=== PATIENT | male | born 1955 | race Caucasian/White ===

== ENCOUNTER 2017-06-16 11:40 | Emergency (ER) | payer BC ==
[2017-06-16] MEDS ORDERED: Nitroglycerin 0.4 MG Tab.SL SL PRN (11:55)
[2017-06-16] MEDS ORDERED: Aspirin 81 MG Tab.Chew PO ONE (11:55)
[2017-06-16] MEDS ORDERED: Ketorolac 30 MG/ML SDV IVPUSH ONE (11:57)
[2017-06-16 12:21] LABS: CHLORIDE,CL 102 mmol/L (98-107); SODIUM,NA 137 mmol/L (136-148)
--- NOTE | 2017-06-16 12:58 | EDM.PDOC ---
ED HPI GENERAL MEDICAL PROBLEM - General Chief Complaint: Chest Pain Stated Complaint: CHEST PAIN AND SOB Time Seen by Provider: 06/16/17 11:52 Source of Information: Reports: Patient History Limitations: Reports: No Limitations - History of Present Illness INITIAL COMMENTS - FREE TEXT/NARRATIVE: History of present illness: []Patient was treated for cough with Zithromax and is on his last day having right-sided rib pain with breathing. He is not complaining of more shortness of breath and denies any fevers chills any longer. Review of systems: As per history of present illness and below otherwise all systems reviewed and negative. Past medical history: As per history of present illness and as reviewed below otherwise noncontributory. Surgical history: As per history of present illness and as reviewed below otherwise noncontributory. Social history: No reported history of drug or alcohol abuse. Family history: As per history of present illness and as reviewed below otherwise noncontributory. Physical exam: General: Well developed, well nourished in NAD HEENT: Atraumatic, normocephalic, pupils reactive, negative for conjunctival pallor or scleral icterus, mucous membranes moist, throat clear, neck supple, nontender, trachea midline. Lungs: Clear to auscultation, breath sounds equal bilaterally, chest tender to palpation over the right ribs. No subcutaneous crepitance tender Heart: S1S2, regular, negative for clicks, rubs, or JVD. Abdomen: Soft, nondistended, nontender. Negative for masses or hepatosplenomegaly. Negative for costovertebral tenderness. Pelvis: Stable nontender. Genitourinary: Deferred. Rectal: Deferred. Extremities: Atraumatic, negative for cords or calf pain. Neurovascular unremarkable. Neuro: Awake, alert, oriented. Cranial nerves II through XII unremarkable. Cerebellum unremarkable. Motor and sensory unremarkable throughout. Exam nonfocal. Diagnostics: []Chest x-ray negative for trach, pneumothorax or rib fracture. CBC negative, chemistries mildly elevated LFTs which patient states is normal for him Therapeutics: []Aspirin and nitroglycerin nitroglycerin given initially Toradol with improvement of pain Impression: []Chest Wall pain Plan: []Tramadol continue meds at home return if symptoms worsen or change follow-up with primary care Definitive disposition and diagnosis as appropriate pending reevaluation and review of above. Right Chest Pain Score (Numeric/FACES): 9 - Related Data Allergies Allergy/AdvReac Type Severity Reaction Status Date / Time No Known Allergies Allergy Verified 06/16/17 11:50 Home Meds: Home Meds Levothyroxine 0.15 mg PO DAILY 09/08/14 [History] atorvaSTATin [Lipitor] 40 mg PO DAILY 09/09/14 [History] Allopurinol [Zyloprim] 0 mg PO DAILY 06/16/17 [History] Losartan [Cozaar] 0 mg PO DAILY 06/16/17 [History] Past Medical History HEENT History: Reports: None Cardiovascular History: Reports: High Cholesterol, Hypertension Respiratory History: Reports: None Other Respiratory History: does no use CPAP Gastrointestinal History: Reports: None Genitourinary History: Reports: None Musculoskeletal History: Reports: Gout Psychiatric History: Reports: None Endocrine/Metabolic History: Reports: Hypothyroidism Other Hematologic History: had blood transfusion as an - Infectious Disease History Infectious Disease History: Reports: None Other Infectious Disease History: Pt does not know - Past Surgical History HEENT Surgical History: Reports: None GI Surgical History: Reports: None Social & Family History - Family History Family Medical History: Noncontributory - Tobacco Use Smoking Status *Q: Never Smoker - Caffeine Use Caffeine Use: Reports: None - Alcohol Use Days Per Week of Alcohol Use: 2 - Recreational Drug Use Recreational Drug Use: No Drug Use in Last 12 Months: No ED ROS GENERAL - Review of Systems Review Of Systems: See Below (See history of present illness) ED EXAM, GI/ABD - Physical Exam Exam: See Below (The history of present illness) Course - Vital Signs Last Recorded V/S: Last Vital Signs Temp 97.6 F 06/16/17 11:47 Pulse 94 06/16/17 11:47 Resp 18 06/16/17 11:47 BP 131/93 H 06/16/17 12:01 Pulse Ox 97 06/16/17 11:47 - Orders/Labs/Meds Orders: Active Orders 24 hr Category Date Time Status EKG 12 Lead [EKG Documentation Completion] [RC] STAT Care 06/16/17 12:16 Active Chest 2V [CR] Stat Exams 06/16/17 11:58 Taken Nitroglycerin [Nitrostat] Med 06/16/17 11:55 Active 0.4 mg SL Q5M PRN Medication Orders Nitroglycerin (Nitrostat) 0.4 mg SL Q5M PRN PRN Reason: Chest Pain Last Admin: 06/16/17 12:01 Dose: 0.4 mg Labs: Laboratory Tests 06/16/17 06/16/17 Range/Units 11:49 11:49 WBC 11.74 H (4.0-11.0) K/uL RBC 4.90 (4.50-5.90) M/uL Hgb 14.5 (13.0-17.0) g/dL Hct 42.5 (38.0-50.0) % MCV 86.7 (80.0-98.0) fL MCH 29.6 (27.0-32.0) pg MCHC 34.1 (31.0-37.0) g/dL RDW Std Deviation 42.8 (28.0-62.0) fl RDW Coeff of Cher 14 (11.0-15.0) % Plt Count 265 (150-400) K/uL MPV 9.90 (7.40-12.00) fL Neut % (Auto) 74.0 (48.0-80.0) % Lymph % (Auto) 14.7 L (16.0-40.0) % Bath % (Auto) 8.1 (0.0-15.0) % Eos % (Auto) 2.8 (0.0-7.0) % Baso % (Auto) 0.4 (0.0-1.5) % Neut # (Auto) 8.7 H (1.4-5.7) K/uL Lymph # (Auto) 1.7 (0.6-2.4) K/uL Bath # (Auto) 1.0 H (0.0-0.8) K/uL Eos # (Auto) 0.3 (0.0-0.7) K/uL Baso # (Auto) 0.1 (0.0-0.1) K/uL Nucleated RBC % 0.0 /100WBC Nucleated RBCs # 0 K/uL Sodium 137 (136-148) mmol/L Potassium 4.4 (3.5-5.1) mmol/L Chloride 102 (98-107) mmol/L Carbon Dioxide 23.1 (21.0-32.0) mmol/L BUN 26 H (7.0-18.0) mg/dL Creatinine 1.9 H (0.8-1.3) mg/dL Est Cr Clr Drug Dosing 42.69 mL/min Estimated GFR (MDRD) 36.3 ml/min Glucose 125 H (74-106) mg/dL Calcium 9.2 (8.5-10.1) mg/dL Total Bilirubin 1.0 (0.2-1.0) mg/dL AST 57 H (15-37) IU/L ALT 69 H (14-63) IU/L Alkaline Phosphatase 125 H (46-116) U/L Troponin I < 0.050 (0.000-0.056) ng/mL Total Protein 7.3 (6.4-8.2) g/dL Albumin 3.3 L (3.4-5.0) g/dL Globulin 4.0 H (2.0-3.5) g/dL Albumin/Globulin Ratio 0.8 L (1.3-2.8) Meds: Medications Generic Name Dose Route Start Last Admin Trade Name Freq PRN Reason Stop Dose Admin Nitroglycerin 0.4 mg 06/16/17 11:55 06/16/17 12:01 Nitrostat SL 0.4 mg Q5M PRN Administration Chest Pain Discontinued Medications Generic Name Dose Route Start Last Admin Trade Name Freq PRN Reason Stop Dose Admin Aspirin 324 mg 06/16/17 11:55 06/16/17 11:59 Aspirin PO 06/16/17 11:56 324 mg ONETIME ONE Administration Ketorolac Tromethamine 30 mg 06/16/17 11:57 06/16/17 12:03 Toradol IVPUSH 06/16/17 11:58 30 mg ONETIME ONE Administration Departure - Departure Time of Disposition: 12:57 Disposition: Home, Self-Care 01 Condition: Good Clinical Impression: Chest wall pain - Discharge Information Referrals: Grzegorz Espinosa MD [Primary Care Provider] - Additional Instructions: The following information is given to patients seen in the emergency department who are being discharged to home. This information is to outline your options for follow-up care. We provide all patients seen in our emergency department with a follow-up referral. The need for follow-up, as well as the timing and circumstances, are variable depending upon the specifics of your emergency department visit. If you don't have a primary care physician on staff, we will provide you with a referral. We always advise you to contact your personal physician following an emergency department visit to inform them of the circumstance of the visit and for follow-up with them and/or the need for any referrals to a consulting specialist. The emergency department will also refer you to a specialist when appropriate. This referral assures that you have the opportunity for follow-up care with a specialist. All of these measure are taken in an effort to provide you with optimal care, which includes your follow-up. Under all circumstances we always encourage you to contact your private physician who remains a resource for coordinating your care. When calling for follow-up care, please make the office aware that this follow-up is from your recent emergency room visit. If for any reason you are refused follow-up, please contact the [facility] Emergency Department at and asked to speak to the emergency department charge nurse. Tramadol for pain follow-up with primary care return if symptoms worsen or change [facility] [address] [place] [id number] - My Orders Last 24 Hours: My Active Orders 06/16/17 11:55 Nitroglycerin [Nitrostat] 0.4 mg SL Q5M PRN 06/16/17 11:58 Chest 2V [CR] Stat 06/16/17 12:16 EKG 12 Lead [EKG Documentation Completion] [RC] STAT - Assessment/Plan Last 24 Hours: My Active Orders 06/16/17 11:55 Nitroglycerin [Nitrostat] 0.4 mg SL Q5M PRN 06/16/17 11:58 Chest 2V [CR] Stat 06/16/17 12:16 EKG 12 Lead [EKG Documentation Completion] [RC] STAT
[2017-06-16 15:24] VITALS: BP 121/81
--- NOTE | 2017-06-17 13:26 | CR ---
EXAM DATE: 06/16/17 PATIENT'S AGE: 62 Patient: FREDERICK PAL Facility: [place], [place] Site . Site : 1955 Study: XRay Chest [id number]/1/2018 12:30:41 PM Ordering Physician: Max Devries Final Report: INDICATION: Pain; shortness of breath; cough. COMPARISON: None. TECHNIQUE: Two-view chest. FINDINGS: Normal size cardiac silhouette. Elevated right hemidiaphragm. No acute pneumonic infiltrates or CHF. No pneumothorax or pleural effusion. IMPRESSION: Negative chest. Dictated by Yara aVle MD @ Jun 16 2017 12:31PM (Electronic Signature) Report Signed by Proxy. QUINND
== END 2017-06-16 13:16 | disposition home or self-care (01) ==
LOC: MW.ED 11:40
DX: R07.89 Other chest pain (principal); E78.00 Pure hypercholesterolemia, unspecified; I10 Essential (primary) hypertension; Z79.899 Other long term (current) drug therapy; E03.9 Hypothyroidism, unspecified
CPT/HCPCS: 36415; 71046; 80053; 84484; 85025; 93005; 96374; 99285; A9270; J1885; 99283

== ENCOUNTER 2017-06-17 16:52 | Observation (INO) | payer BC ==
--- NOTE | 2017-06-17 17:03 | EDM.PDOC ---
ED HPI GENERAL MEDICAL PROBLEM - General Chief Complaint: General Stated Complaint: PT HAS BLOOD CLOT IN LT LEG Time Seen by Provider: 06/17/17 16:58 Source of Information: Reports: Patient History Limitations: Reports: No Limitations - History of Present Illness INITIAL COMMENTS - FREE TEXT/NARRATIVE: History of present illness: []Patient was sent in from Dr. Espinosa's office after discovering he has a DVT in his leg during a follow-up visit for gout. Patient was recently treated for bronchitis and was seen in the ER yesterday for rib pain and pain with breathing. Dr. Espinosa did repeat labs and a shows a BUN/creatinine of 35/2.3 today. He served in the ED for treatment of his DVT and rule out PE. Review of systems: As per history of present illness and below otherwise all systems reviewed and negative. Past medical history: As per history of present illness and as reviewed below otherwise noncontributory. Surgical history: As per history of present illness and as reviewed below otherwise noncontributory. Social history: No reported history of drug or alcohol abuse. Family history: As per history of present illness and as reviewed below otherwise noncontributory. Physical exam: General: Well developed, well nourished in NAD HEENT: Atraumatic, normocephalic, pupils reactive, negative for conjunctival pallor or scleral icterus, mucous membranes moist, throat clear, neck supple, nontender, trachea midline. Lungs: Clear to auscultation, breath sounds equal bilaterally, chest nontender. Heart: S1S2, regular, negative for clicks, rubs, or JVD. Abdomen: Soft, nondistended, nontender. Negative for masses or hepatosplenomegaly. Negative for costovertebral tenderness. Pelvis: Stable nontender. Genitourinary: Deferred. Rectal: Deferred. Extremities: Atraumatic, negative for cords or calf pain. Neurovascular unremarkable. Neuro: Awake, alert, oriented. Cranial nerves II through XII unremarkable. Cerebellum unremarkable. Motor and sensory unremarkable throughout. Exam nonfocal. Diagnostics: []VQ scan ordered while he was in the VQ scanner the machine is started cracking and started smelling of fire so the test was stopped at this point I consulted Dr. Lester to see what the best plan would be and he recommended admitting for observation and starting him on EliQuist tomorrow Therapeutics: []Lovenox Impression: []DVT, Plan: []Admit for observation telemetry Definitive disposition and diagnosis as appropriate pending reevaluation and review of above. Middle Chest Pain Score (Numeric/FACES): 1 - Related Data Allergies Allergy/AdvReac Type Severity Reaction Status Date / Time No Known Allergies Allergy Verified 06/16/17 11:50 Home Meds: Home Meds Levothyroxine 150 mcg PO DAILY 09/08/14 [History] atorvaSTATin [Lipitor] 40 mg PO DAILY 09/09/14 [History] Allopurinol [Zyloprim] 300 mg PO DAILY 06/16/17 [History] Losartan [Cozaar] 100 mg PO DAILY 06/16/17 [History] Albuterol [IMW: Albuterol HFA] 1 puff IH Q6H PRN 06/17/17 [History] Levothyroxine 225 mcg PO WEEKLY 06/18/17 [History] Past Medical History HEENT History: Reports: None Cardiovascular History: Reports: High Cholesterol, Hypertension Respiratory History: Reports: None Other Respiratory History: does no use CPAP Gastrointestinal History: Reports: None Genitourinary History: Reports: None Musculoskeletal History: Reports: Gout Psychiatric History: Reports: None Endocrine/Metabolic History: Reports: Hypothyroidism Other Hematologic History: had blood transfusion as an - Infectious Disease History Infectious Disease History: Reports: None Other Infectious Disease History: Pt does not know - Past Surgical History HEENT Surgical History: Reports: None GI Surgical History: Reports: None Social & Family History - Family History Family Medical History: Noncontributory - Tobacco Use Smoking Status *Q: Never Smoker - Caffeine Use Caffeine Use: Reports: None - Alcohol Use Days Per Week of Alcohol Use: 2 - Recreational Drug Use Recreational Drug Use: No Drug Use in Last 12 Months: No ED ROS GENERAL - Review of Systems Review Of Systems: See Below ED EXAM, GENERAL - Physical Exam Exam: See Below (The history of present illness) Course - Vital Signs Last Recorded V/S: Last Vital Signs Temp 98.0 F 06/18/17 07:52 Pulse 95 06/18/17 07:52 Resp 20 06/18/17 07:52 BP 129/83 06/18/17 09:50 Pulse Ox 94 L 06/18/17 07:52 - Orders/Labs/Meds Orders: Active Orders 24 hr Category Date Time Status EKG 12 Lead [EKG Documentation Completion] [RC] STAT Care 06/17/17 17:25 Active Sodium Chloride 0.9% [Saline Flush] Med 06/17/17 17:07 Active 10 ml FLUSH ASDIRECTED PRN Sodium Chloride 0.9% [Saline Flush] Med 06/17/17 17:07 Active 2.5 ml FLUSH ASDIRECTED PRN Saline Lock Insert [OM.PC] Stat Oth 06/17/17 17:07 Ordered Medication Orders Atorvastatin Calcium (Lipitor) 40 mg PO DAILY [facility] Last Admin: 06/18/17 09:51 Dose: 40 mg Enoxaparin Sodium (Lovenox) 110 mg SUBCUT Q12H [facility] Levothyroxine Sodium (Levothyroxine) 150 mcg PO ACBREAKFAST [facility] Last Admin: 06/18/17 08:06 Dose: 150 mcg Levothyroxine Sodium (Levothyroxine) 75 mcg PO Mo@0730 [facility] Losartan Potassium (Cozaar) 100 mg PO DAILY [facility] Last Admin: 06/18/17 09:50 Dose: 100 mg Sodium Chloride (Saline Flush) 10 ml FLUSH ASDIRECTED PRN PRN Reason: Keep Vein Open Last Admin: 06/17/17 18:57 Dose: 10 ml Sodium Chloride (Saline Flush) 2.5 ml FLUSH ASDIRECTED PRN PRN Reason: Keep Vein Open Last Admin: 06/17/17 18:57 Dose: 2.5 ml Labs: Laboratory Tests 06/17/17 06/17/17 Range/Units 17:10 17:10 INR 1.03 APTT 22.6 (18.6-31.3) SEC Meds: Medications Generic Name Dose Route Start Last Admin Trade Name Freq PRN Reason Stop Dose Admin Atorvastatin Calcium 40 mg 06/18/17 09:00 06/18/17 09:51 Lipitor PO 40 mg DAILY [facility] Administration Enoxaparin Sodium 110 mg 06/18/17 17:00 Lovenox SUBCUT Q12H [facility] Levothyroxine Sodium 150 mcg 06/18/17 07:30 06/18/17 08:06 Levothyroxine PO 150 mcg ACBREAKFAST [facility] Administration Levothyroxine Sodium 75 mcg 06/24/17 07:30 Levothyroxine PO Mo@0730 [facility] Losartan Potassium 100 mg 06/18/17 09:00 06/18/17 09:50 Cozaar PO 100 mg DAILY [facility] Administration Sodium Chloride 10 ml 06/17/17 17:07 06/17/17 18:57 Saline Flush FLUSH 10 ml ASDIRECTED PRN Administration Keep Vein Open Sodium Chloride 2.5 ml 06/17/17 17:07 06/17/17 18:57 Saline Flush FLUSH 2.5 ml ASDIRECTED PRN Administration Keep Vein Open Discontinued Medications Generic Name Dose Route Start Last Admin Trade Name Judie PRN Reason Stop Dose Admin Enoxaparin Sodium 107 mg 06/17/17 17:06 06/17/17 17:20 Lovenox SUBCUT 06/17/17 17:07 107 mg ONETIME ONE Administration Enoxaparin Sodium 107 mg 06/18/17 05:00 06/18/17 06:23 Lovenox SUBCUT 107 mg Q12H BRODIE Administration Departure - Departure Time of Disposition: 19:00 Disposition: Refer to Observation Condition: Good Clinical Impression: DVT (deep venous thrombosis) - Discharge Information - My Orders Last 24 Hours: My Active Orders 06/17/17 17:07 Sodium Chloride 0.9% [Saline Flush] 10 ml FLUSH ASDIRECTED PRN Sodium Chloride 0.9% [Saline Flush] 2.5 ml FLUSH ASDIRECTED PRN Saline Lock Insert [OM.PC] Stat 06/17/17 17:25 EKG 12 Lead [EKG Documentation Completion] [RC] STAT - Assessment/Plan Last 24 Hours: My Active Orders 06/17/17 17:07 Sodium Chloride 0.9% [Saline Flush] 10 ml FLUSH ASDIRECTED PRN Sodium Chloride 0.9% [Saline Flush] 2.5 ml FLUSH ASDIRECTED PRN Saline Lock Insert [OM.PC] Stat 06/17/17 17:25 EKG 12 Lead [EKG Documentation Completion] [RC] STAT
[2017-06-17] MEDS ORDERED: Enoxaparin 150 MG/1 ML Syringe SUBCUT ONE (17:06)
[2017-06-17] MEDS ORDERED: Sodium Chloride 0.9% 10 ML Syringe FLUSH PRN (17:07)
[2017-06-17] MEDS ORDERED: Sodium Chloride 0.9% 2.5 ML Syringe FLUSH PRN (17:07)
--- NOTE | 2017-06-17 21:54 | PCM.HP ---
H&P History of Present Illness - General Admit Problem/Dx: Admission Diagnosis/Problem Admission Diagnosis/Problem DVT, Deep venous thrombosis of lower extremity - History of Present Illness Initial Comments - Free Text/Narative: 62 yo male with pmh of gout, CKD, and HTN who was discovered to have DVT in left lower extremity in Dr. Lee office today. In the end of march he reported left ankle edema and erythema and was treated for gout with prednisone. The edema did resolve. Last week patient reported cough, pleuritic chest pain and shortness of breath. He was treated for prednisone and inhaler. His pleuriti chest pain has resolved but in follow up with Dr. Boateng today he had a lower extremity dopplar which revealed DVT. He was sent to the ED for VQ scan but VQ scan malfunctioned. The ED physcian then referred patient for observation. Middle Chest Pain Score (Numeric/FACES): 1 - Related Data Allergies/Adverse Reactions: Allergies Allergy/AdvReac Type Severity Reaction Status Date / Time No Known Allergies Allergy Verified 06/16/17 11:50 Home Medications: Home Meds Levothyroxine 150 mcg PO DAILY 09/08/14 [History] atorvaSTATin [Lipitor] 40 mg PO DAILY 09/09/14 [History] Allopurinol [Zyloprim] 300 mg PO DAILY 06/16/17 [History] Losartan [Cozaar] 100 mg PO DAILY 06/16/17 [History] Albuterol [IMW: Albuterol HFA] 1 puff IH Q6H PRN 06/17/17 [History] Apixaban [Eliquis] 5 - 10 mg PO BID #70 tablet 06/18/17 [Rx] Levothyroxine 225 mcg PO WEEKLY 06/18/17 [History] Past Medical History HEENT History: Reports: Impaired Vision Cardiovascular History: Reports: High Cholesterol, Hypertension Respiratory History: Reports: None Other Respiratory History: does not use CPAP Gastrointestinal History: Reports: None Genitourinary History: Reports: None Musculoskeletal History: Reports: Gout Psychiatric History: Reports: None Endocrine/Metabolic History: Reports: Hypothyroidism Hematologic History: Reports: Blood Transfusion(s) Other Hematologic History: had blood transfusion as an infant - Infectious Disease History Infectious Disease History: Reports: None Other Infectious Disease History: Pt does not know - Past Surgical History HEENT Surgical History: Reports: None GI Surgical History: Reports: None Endocrine Surgical History: Reports: Other (See Below) Other Endocrine Surgeries/Procedures: radiation to thyroid Musculoskeletal Surgical History: Reports: Other (See Below) Other Musculoskeletal Surgeries/Procedures:: 2 left knee surgeries; right torn meniscus 2014 Social & Family History - Family History Family Medical History: Noncontributory - Tobacco Use Smoking Status *Q: Never Smoker Second Hand Smoke Exposure: No - Caffeine Use Caffeine Use: Reports: Soda, Tea - Alcohol Use Days Per Week of Alcohol Use: 2 - Recreational Drug Use Recreational Drug Use: No Drug Use in Last 12 Months: No H&P Review of Systems - Review of Systems: Review Of Systems: ROS reveals no pertinent complaints other than HPI. Hematologic/Lymphatic: Denies: Anemia, Easy Bleeding, Easy Bruising Exam - Exam Exam: See Below - Vital Signs Vital Signs: Last Vital Signs Temp 36.3 C 06/17/17 19:50 Pulse 87 06/17/17 19:50 Resp 16 06/17/17 19:50 BP 148/85 H 06/17/17 19:50 Pulse Ox 97 06/17/17 19:50 Weight: 107.7 kg - Exam General: Alert, Oriented HEENT: Posterior Pharynx Clear Neck: Supple Lungs: Clear to Auscultation, Normal Respiratory Effort Cardiovascular: Regular Rate, Regular Rhythm GI/Abdominal Exam: Normal Bowel Sounds, Soft, Non-Tender Extremities: Non-Tender, No Pedal Edema Skin: Warm, Dry, Intact - Patient Data Lab Results Last 24 hrs: Laboratory Results - last 24 hr 06/17/17 06/17/17 Range/Units 17:10 17:10 INR 1.03 APTT 22.6 (18.6-31.3) SEC Result Diagrams: 06/18/17 04:55 06/18/17 04:55 Problem List Initiated/Reviewed/Updated: Yes Orders Last 24hrs: Active Orders 24 hr Category Date Time Status Patient Status [ADT] Stat ADT 06/17/17 18:41 Active EKG 12 Lead [EKG Documentation Completion] [RC] STAT Care 06/17/17 17:25 Active Oxygen Therapy [RC] PRN Care 06/17/17 21:47 Ordered Up ad Latoya [RC] ASDIRECTED Care 06/17/17 21:47 Ordered VTE/DVT Education [RC] PER UNIT ROUTINE Care 06/17/17 21:47 Ordered Vital Signs [RC] Q4H Care 06/17/17 21:47 Ordered Regular Diet [DIET] Diet 06/17/17 Breakfast Ordered Chest 1V Frontal [CR] Stat Exams 06/17/17 17:09 Taken Lung Vent Perfusion [NM] Stat Exams 06/17/17 17:01 Stop Req BASIC METABOLIC PANEL,BMP [CHEM] AM Lab 06/18/17 05:11 Ordered CBC WITH AUTO DIFF [HEME] AM Lab 06/18/17 05:11 Ordered Enoxaparin [Lovenox] Med 06/18/17 05:00 Ordered 107 mg SUBCUT Q12H Levothyroxine Med 06/17/17 22:00 Ordered 150 mcg PO ASDIRECTED Losartan Med 06/18/17 09:00 Ordered 100 mg PO DAILY Sodium Chloride 0.9% [Saline Flush] Med 06/17/17 17:07 Active 10 ml FLUSH ASDIRECTED PRN Sodium Chloride 0.9% [Saline Flush] Med 06/17/17 17:07 Active 2.5 ml FLUSH ASDIRECTED PRN atorvaSTATin [Lipitor] Med 06/18/17 09:00 Ordered 40 mg PO DAILY Saline Lock Insert [OM.PC] Stat Oth 06/17/17 17:07 Ordered Sequential Compression Device [OM.PC] Per Unit Routine Oth 06/17/17 21:47 Ordered Resuscitation Status Routine Resus Stat 06/17/17 21:47 Ordered Medication Orders Enoxaparin Sodium (Lovenox) 107 mg SUBCUT Q12H [facility] Sodium Chloride (Saline Flush) 10 ml FLUSH ASDIRECTED PRN PRN Reason: Keep Vein Open Last Admin: 06/17/17 18:57 Dose: 10 ml Sodium Chloride (Saline Flush) 2.5 ml FLUSH ASDIRECTED PRN PRN Reason: Keep Vein Open Last Admin: 06/17/17 18:57 Dose: 2.5 ml Assessment/Plan Comment:: 62 yo male admitted with VTE. He has confirmed DVT and likely PE due to symptoms that he has had this past week. PAtient has no severe symptoms, hemodynamiclly stable, and not hypoxic. I do not think we need to pursue further work up for PE considering his CKD and him already requiring anticoagulation for his DVT. Patient was started on lovenox in the ED. Will monitor overnight and start oral anticoagulation in the morning.
[2017-06-18] MEDS ORDERED: Enoxaparin 60 MG/0.6 ML Syringe SUBCUT SCH (05:00)
[2017-06-18] MEDS ORDERED: Levothyroxine 150 MCG Tab PO SCH (07:30)
[2017-06-18] MEDS ORDERED: atorvaSTATin 40 MG Tab PO SCH (09:00)
[2017-06-18] MEDS ORDERED: Losartan 50 MG Tab PO SCH (09:00)
--- NOTE | 2017-06-18 09:36 | CR ---
EXAM DATE: 06/17/17 PATIENT'S AGE: 62 Patient: FREDERICK PAL Facility: [place], [place] Site . Site : 1955 Study: XRay Chest [id number]/2/2018 5:32:53 PM Ordering Physician: Doctor Fowler Final Report: INDICATION: Right-sided Chest Pain. Positive left lower extremity DVT. TECHNIQUE: Chest 1 view COMPARISON: June 16, 2017 FINDINGS: Cardiovascular and mediastinum: Heart size and vasculature are normal in caliber and appearance. Mediastinum is within normal limits. Lungs and pleural space: No focal consolidation. Elevation of the right hemidiaphragm. No sign of pleural effusion. No pneumothorax. Bones and soft tissues: No significant findings. IMPRESSION: No acute cardiopulmonary disease Dictated by Jorje Patel MD @ 06/17/2017 6:09:10 PM Dictated by: Jorje Patel MD @ 06/17/2017 18:09:17 (Electronic Signature) Report Signed by Proxy. FARRAH
--- NOTE | 2017-06-18 12:24 | PCM.DCSUM1 ---
Discharge Summary - Hospital Course Brief History: 62 yo male with pmh of gout, CKD, and HTN who was discovered to have DVT in left lower extremity in Dr. Lee office today. In the end of March he reported left ankle edema and erythema and was treated for gout with prednisone, which helped resolve the edema. He did travel to [place] and [place] by plane in early March. Last week patient reported cough, pleuritic chest pain and shortness of breath. He was treated for prednisone and inhaler. His pleuriti chest pain has resolved but in follow up with Dr. Boateng today he had a lower extremity dopplar which revealed DVT. He was sent to the ED for VQ scan but VQ scan malfunctioned. The ED physcian then referred patient for observation. - Discharge Data Discharge Date: 06/18/17 Discharge Disposition: Home, Self-Care 01 Condition: Stable - Discharge Diagnosis/Problem(s) (1) DVT (deep venous thrombosis) SNOMED Code(s): 490058825 ICD Code: I82.409 - ACUTE EMBOLISM AND THOMBOS UNSP DEEP VN UNSP LOWER EXTREMITY Status: Acute Qualifiers: DVT location: lower extremity Chronicity: acute (2) Pulmonary embolism SNOMED Code(s): 77493320 ICD Code: I26.99 - OTHER PULMONARY EMBOLISM WITHOUT ACUTE COR PULMONALE Status: Suspected Qualifiers: Pulmonary embolism type: other Chronicity: acute Acute cor pulmonale presence: without acute cor pulmonale Qualified Code(s): I26.99 - Other pulmonary embolism without acute cor pulmonale (3) Chest wall pain SNOMED Code(s): 676355114 ICD Code: R07.89 - OTHER CHEST PAIN Status: Acute (4) HTN (hypertension) SNOMED Code(s): 76694410 ICD Code: I10 - ESSENTIAL (PRIMARY) HYPERTENSION Status: Chronic Qualifiers: Hypertension type: essential hypertension Qualified Code(s): I10 - Essential (primary) hypertension (5) CKD (chronic kidney disease) SNOMED Code(s): 982723742 ICD Code: N18.9 - CHRONIC KIDNEY DISEASE, UNSPECIFIED Status: Chronic (6) Hypothyroidism SNOMED Code(s): 89910036 ICD Code: E03.9 - HYPOTHYROIDISM, UNSPECIFIED Status: Chronic - Patient Instructions Diet: Usual Diet as Tolerated Activity: As Tolerated, No Strenuous Activities (or contact activities.) Driving: May Drive Today Showering/Bathing: May Shower Notify Provider of: Fever, Increased Pain, Swelling and Redness, Drainage, Nausea and/or Vomiting - Discharge Plan Prescriptions/Med Rec: Apixaban [Eliquis] 5 - 10 mg PO BID #70 tablet Home Medications: Home Meds Levothyroxine 150 mcg PO DAILY 09/08/14 [History] atorvaSTATin [Lipitor] 40 mg PO DAILY 09/09/14 [History] Allopurinol [Zyloprim] 300 mg PO DAILY 06/16/17 [History] Losartan [Cozaar] 100 mg PO DAILY 06/16/17 [History] Albuterol [IMW: Albuterol HFA] 1 puff IH Q6H PRN 06/17/17 [History] Apixaban [Eliquis] 5 - 10 mg PO BID #70 tablet 06/18/17 [Rx] Levothyroxine 225 mcg PO WEEKLY 06/18/17 [History] Patient Handouts: Apixaban oral tablets, Deep Vein Thrombosis Referrals: Grzegorz Espinosa MD [Physician] - 06/24/17 9:15 am - Discharge Summary/Plan Comment DC Time >30 min.: No Discharge Summary/Plan Comment: Discharge Diagnoses: DVT Suspected PE HTN CKD Hypothyroidism Miguel Ángel was admitted and treated with Lovenox for DVT of lower extremity. He did have some chest wall pain and cough which did improve overnight. Unable to obtain CT chest angio to evaluated for PE due to CKD and VQ machine unavailable. Due to known DVT and likely PE, this will not change treatment. Will place on Eliquis 10 mg BID x 7 days then decrease to 5 mg BID for 6 months. I notified PCP, Dr Espinosa of this plan and he is agreeable. Today Miguel Ángel is feeling better, no hypoxia noted and no pain to leg. He will be discharged home. No contact sports or activities, otherwise as tolerated. He is to return to ED or clinic if concerns should arise. We discussed side effects of Elqiuis and monitor of bleeding. He verbalized understanding. - General Info Date of Service: 06/18/17 Admission Dx/Problem (Free Text: Admission Diagnosis/Problem Admission Diagnosis/Problem DVT, Deep venous thrombosis of lower extremity Subjective Update: Sitting in bed, feeling well. No chest pain, SOB or palpitations. No pain. Feeling ready for discharge home. Functional Status: Reports: Pain Controlled, Tolerating Diet, Ambulating, Urinating - Review of Systems General: Reports: No Symptoms. Denies: Fever, Weakness, Fatigue Pulmonary: Reports: No Symptoms. Denies: Shortness of Breath Cardiovascular: Reports: No Symptoms. Denies: Chest Pain Gastrointestinal: Reports: No Symptoms. Denies: Abdominal Pain, Nausea, Vomiting Genitourinary: Reports: No Symptoms. Denies: Dysuria, Frequency, Burning Musculoskeletal: Reports: No Symptoms Skin: Reports: No Symptoms Neurological: Reports: No Symptoms Psychiatric: Reports: No Symptoms - Patient Data Vitals - Most Recent: Last Vital Signs Temp 98.0 F 06/18/17 07:52 Pulse 95 06/18/17 07:52 Resp 20 06/18/17 07:52 BP 129/83 06/18/17 09:50 Pulse Ox 94 L 06/18/17 07:52 Weight - Most Recent: 107.7 kg I&O - Last 24 hours: Intake & Output 06/17/17 06/18/17 06/18/17 22:59 06:59 14:59 Intake Total 50 Output Total 640 Balance -590 Lab Results - Last 24 hrs: Laboratory Results - last 24 hr 06/17/17 06/17/17 06/18/17 Range/Units 17:10 17:10 04:55 WBC 8.20 (4.0-11.0) K/uL RBC 4.39 L (4.50-5.90) M/uL Hgb 12.7 L (13.0-17.0) g/dL Hct 38.2 (38.0-50.0) % MCV 87.0 (80.0-98.0) fL MCH 28.9 (27.0-32.0) pg MCHC 33.2 (31.0-37.0) g/dL RDW Std Deviation 43.4 (28.0-62.0) fl RDW Coeff of Cher 14 (11.0-15.0) % Plt Count 311 (150-400) K/uL MPV 10.00 (7.40-12.00) fL Neut % (Auto) 66.5 (48.0-80.0) % Lymph % (Auto) 18.2 (16.0-40.0) % [place] % (Auto) 7.9 (0.0-15.0) % Eos % (Auto) 6.5 (0.0-7.0) % Baso % (Auto) 0.9 (0.0-1.5) % Neut # (Auto) 5.5 (1.4-5.7) K/uL Lymph # (Auto) 1.5 (0.6-2.4) K/uL [place] # (Auto) 0.7 (0.0-0.8) K/uL Eos # (Auto) 0.5 (0.0-0.7) K/uL Baso # (Auto) 0.1 (0.0-0.1) K/uL Nucleated RBC % 0.0 /100WBC Nucleated RBCs # 0 K/uL INR 1.03 APTT 22.6 (18.6-31.3) SEC Sodium (136-148) mmol/L Potassium (3.5-5.1) mmol/L Chloride (98-107) mmol/L Carbon Dioxide (21.0-32.0) mmol/L BUN (7.0-18.0) mg/dL Creatinine (0.8-1.3) mg/dL Est Cr Clr Drug Dosing mL/min Estimated GFR (MDRD) ml/min Glucose (74-106) mg/dL Calcium (8.5-10.1) mg/dL 06/18/17 Range/Units 04:55 WBC (4.0-11.0) K/uL RBC (4.50-5.90) M/uL Hgb (13.0-17.0) g/dL Hct (38.0-50.0) % MCV (80.0-98.0) fL MCH (27.0-32.0) pg MCHC (31.0-37.0) g/dL RDW Std Deviation (28.0-62.0) fl RDW Coeff of Cher (11.0-15.0) % Plt Count (150-400) K/uL MPV (7.40-12.00) fL Neut % (Auto) (48.0-80.0) % Lymph % (Auto) (16.0-40.0) % [place] % (Auto) (0.0-15.0) % Eos % (Auto) (0.0-7.0) % Baso % (Auto) (0.0-1.5) % Neut # (Auto) (1.4-5.7) K/uL Lymph # (Auto) (0.6-2.4) K/uL [place] # (Auto) (0.0-0.8) K/uL Eos # (Auto) (0.0-0.7) K/uL Baso # (Auto) (0.0-0.1) K/uL Nucleated RBC % /100WBC Nucleated RBCs # K/uL INR APTT (18.6-31.3) SEC Sodium 139 (136-148) mmol/L Potassium 4.3 (3.5-5.1) mmol/L Chloride 106 (98-107) mmol/L Carbon Dioxide 24.4 (21.0-32.0) mmol/L BUN 40 H (7.0-18.0) mg/dL Creatinine 2.0 H (0.8-1.3) mg/dL Est Cr Clr Drug Dosing 40.66 mL/min Estimated GFR (MDRD) 34.3 ml/min Glucose 128 H (74-106) mg/dL Calcium 8.6 (8.5-10.1) mg/dL Med Orders - Current: Current Medications Atorvastatin Calcium (Lipitor) 40 mg PO DAILY REPLACED BY [facility] Last Admin: 06/18/17 09:51 Dose: 40 mg Enoxaparin Sodium (Lovenox) 110 mg SUBCUT Q12H REPLACED BY [facility] Levothyroxine Sodium (Levothyroxine) 150 mcg PO ACBREAKFAST REPLACED BY [facility] Last Admin: 06/18/17 08:06 Dose: 150 mcg Levothyroxine Sodium (Levothyroxine) 75 mcg PO Mo@0730 REPLACED BY [facility] Losartan Potassium (Cozaar) 100 mg PO DAILY REPLACED BY [facility] Last Admin: 06/18/17 09:50 Dose: 100 mg Sodium Chloride (Saline Flush) 10 ml FLUSH ASDIRECTED PRN PRN Reason: Keep Vein Open Last Admin: 06/17/17 18:57 Dose: 10 ml Sodium Chloride (Saline Flush) 2.5 ml FLUSH ASDIRECTED PRN PRN Reason: Keep Vein Open Last Admin: 06/17/17 18:57 Dose: 2.5 ml Discontinued Medications Enoxaparin Sodium (Lovenox) 107 mg SUBCUT ONETIME ONE Stop: 06/17/17 17:07 Last Admin: 06/17/17 17:20 Dose: 107 mg Enoxaparin Sodium (Lovenox) 107 mg SUBCUT Q12H BRODIE Last Admin: 06/18/17 06:23 Dose: 107 mg - Exam Quality Assessment: Reports: DVT Prophylaxis. Denies: Supplemental Oxygen General: Reports: Alert, Oriented, Cooperative, No Acute Distress Neck: Reports: Supple Lungs: Reports: Clear to Auscultation, Normal Respiratory Effort Cardiovascular: Reports: Regular Rate, Regular Rhythm GI/Abdominal Exam: Normal Bowel Sounds, Soft, Non-Tender, No Organomegaly, No Distention, No Abnormal Bruit, No Mass, Pelvis Stable Back Exam: Reports: Normal Inspection, Full Range of Motion Extremities: Normal Inspection, Normal Range of Motion, Non-Tender, No Pedal Edema, Normal Capillary Refill Neurological: Reports: No New Focal Deficit Psy/Mental Status: Reports: Alert, Normal Affect, Normal Mood
[2017-06-18 13:22] VITALS: BP 137/90
[2017-06-18] MEDS ORDERED: Enoxaparin 150 MG/1 ML Syringe SUBCUT SCH (17:00)
[2017-06-24] MEDS ORDERED: Levothyroxine 75 MCG Tab PO SCH (07:30)
== END 2017-06-18 13:45 | disposition home or self-care (01) ==
LOC: MW.ED 16:52 → MW.MS 18:41
PROVIDERS: ADMIT Internal Medicine; ATTEND Internal Medicine
DX: I82.409 Acute embolism and thrombosis of unspecified deep veins of unspecified lower extremity (principal); I26.99 Other pulmonary embolism without acute cor pulmonale; R07.89 Other chest pain; I12.9 Hypertensive chronic kidney disease with stage 1 through stage 4 chronic kidney disease, or unspecified chronic kidney disease; N18.9 Chronic kidney disease, unspecified; E03.9 Hypothyroidism, unspecified; Z79.899 Other long term (current) drug therapy
CPT/HCPCS: 36415; 71045; 80048; 85025; 85610; 85730; 96372; 99284; A9270; G0378; J1650; 99283

== ENCOUNTER 2018-12-26 22:55 | Emergency (ER) | payer BC ==
[2018-12-26 23:17] VITALS: BP 130/83; PULSE 77
--- NOTE | 2018-12-26 23:27 | EDM.PDOC ---
ED HPI GENERAL MEDICAL PROBLEM - General Chief Complaint: Lower Extremity Injury/Pain Stated Complaint: PAIN IN LEFT LEG Time Seen by Provider: 12/26/18 23:09 Source of Information: Reports: Patient History Limitations: Reports: No Limitations - History of Present Illness INITIAL COMMENTS - FREE TEXT/NARRATIVE: HISTORY AND PHYSICAL: History of present illness: Patient is a 63-year-old male who presents to the ED today with concern of left calf swelling, pain, and firmness since this evening. Patient states he's had one blood clot in the past in 2016 in which she also had spots that went to his lungs and states they thought it was due to a long flight. Patient states she's been on blood thinners since those and has not had any recurring clots but patient states he was just stopped his blood thinners in October, 2 months ago. Patient denies any shortness of breath or hemoptysis. Patient denies fever, chills, chest pain, shortness of breath, or cough. Denies headache, neck stiff ness, change in vision, syncope, or near syncope. Denies nausea, vomiting, abdominal pain, diarrhea, constipation, or dysuria. Has not noted any blood in urine or stool. Patient has been eating and drinking appropriately. Review of systems: As per history of present illness and below otherwise all systems reviewed and negative. Past medical history: As per history of present illness and as reviewed below otherwise noncontributory. Surgical history: As per history of present illness and as reviewed below otherwise noncontributory. Social history: See social history for further information Family history: As per history of present illness and as reviewed below otherwise noncontributory. Physical exam: General: Patient is alert, oriented, and in no acute distress. Patient laying comfortably on exam table. HEENT: Atraumatic, normocephalic, pupils equal and reactive bilaterally, negative for conjunctival pallor or scleral icterus, mucous membranes moist, TMs normal bilaterally, throat clear, neck supple, nontender, trachea midline. No drooling or trismus noted. No meningeal signs. No hot potato voice noted. Lungs: Clear to auscultation, breath sounds equal bilaterally, chest nontender. Heart: S1S2, regular rate and rhythm without overt murmur Abdomen: Soft, nondistended, nontender. Negative for masses or hepatosplenomegaly. Negative for costovertebral tenderness. Pelvis: Stable nontender. Genitourinary: Deferred. Rectal: Deferred. Skin: Intact, warm, dry. No lesions or rashes noted. Extremities: Atraumatic, negative for cords. Neurovascular unremarkable. The left calf is more firm to palpation than the right calf and mildly more edematous. The left calf is non erythematous or warm to the touch but is mildly painful to palpation. DP/PT pulses intact bilaterally with capillary refill less than 2 seconds. Neuro: Awake, alert, oriented. Cranial nerves II through XII unremarkable. Cerebellum unremarkable. Motor and sensory unremarkable throughout. Exam nonfocal. Notes: Dr. Herbert verbally involved in patient care. Dr. Santiago was consulted on patient and suggests bridging Lovenox for 5 days with Eliquis. Patient was placed on expedited follow-up with primary care. Discussed the importance for this follow-up. Voices understanding and is agreeable to plan of care. Denies any further questions or concerns at this time. Diagnostics: Lower extremity doppler US, PT/INR, PTT, CBC Therapeutics: Lovenox Prescription: Eliquis Impression: DVT of left lower extremity Plan: 1. Take medication as prescribed. You can alternate ibuprofen and Tylenol as directed for pain and discomfort. 2. Follow-up with her primary care provider as discussed. You been placed on the expedited follow-up list. Call Saturday morning to verify appointment time. 3. Return to the ED as needed and as discussed. Definitive disposition and diagnosis as appropriate pending reevaluation and review of above. Left Lower Leg Pain Score (Numeric/FACES): 6 - Related Data Allergies Allergy/AdvReac Type Severity Reaction Status Date / Time No Known Allergies Allergy Verified 12/26/18 23:05 Home Meds: Home Meds Levothyroxine 150 mcg PO DAILY 09/08/14 [History] atorvaSTATin [Lipitor] 40 mg PO DAILY 09/09/14 [History] Losartan [Cozaar] 100 mg PO DAILY 06/16/17 [History] Colchicine 0.3 mg PO DAILY 12/26/18 [History] Past Medical History HEENT History: Reports: Impaired Vision Cardiovascular History: Reports: High Cholesterol, Hypertension Respiratory History: Reports: None Other Respiratory History: does not use CPAP Gastrointestinal History: Reports: None Genitourinary History: Reports: None Musculoskeletal History: Reports: Gout Psychiatric History: Reports: None Endocrine/Metabolic History: Reports: Hypothyroidism Hematologic History: Reports: Blood Transfusion(s), Other (See Below) Other Hematologic History: had blood transfusion as an infant. blood clot 2016 - Infectious Disease History Infectious Disease History: Reports: Chicken Pox Other Infectious Disease History: Pt does not know - Past Surgical History HEENT Surgical History: Reports: None GI Surgical History: Reports: None Endocrine Surgical History: Reports: Other (See Below) Other Endocrine Surgeries/Procedures: radiation to thyroid Musculoskeletal Surgical History: Reports: Other (See Below) Other Musculoskeletal Surgeries/Procedures:: 2 left knee surgeries; right torn meniscus 2014 Social & Family History - Family History Family Medical History: Noncontributory - Tobacco Use Smoking Status *Q: Never Smoker - Caffeine Use Caffeine Use: Reports: Soda - Recreational Drug Use Recreational Drug Use: No Review of Systems - Review of Systems Review Of Systems: ROS reveals no pertinent complaints other than HPI. ED EXAM, GENERAL - Physical Exam Exam: See Below (See dictation) Course - Vital Signs Last Recorded V/S: Last Vital Signs Temp 97.3 F 12/26/18 23:09 Pulse 77 12/26/18 23:09 Resp 17 12/26/18 23:09 BP 130/83 12/26/18 23:09 Pulse Ox 95 12/26/18 23:09 - Orders/Labs/Meds Orders: Active Orders 24 hr Category Date Time Status Venous Doppler Lwr Ext Lt [US] Stat Exams 12/26/18 23:20 Taken CBC WITH AUTO DIFF [HEME] Stat Lab 12/26/18 23:52 Ordered INR,PT,PROTHROMBIN TIME [COAG] Stat Lab 12/26/18 23:50 Ordered PTT,PARTIAL THROMBOPLSTIN TIME [COAG] Stat Lab 12/26/18 23:50 Ordered Meds: Medications Discontinued Medications Generic Name Dose Route Start Last Admin Trade Name Freq PRN Reason Stop Dose Admin Enoxaparin Sodium 102 mg 12/27/18 00:01 Lovenox SUBCUT 12/27/18 00:02 ONETIME ONE Departure - Departure Time of Disposition: 00:14 Disposition: Home, Self-Care 01 Clinical Impression: Deep vein thrombosis (DVT) of left lower extremity Qualifiers: Affected thrombotic vein of extremity: femoral Chronicity: acute Qualified Code (s): I82.412 - Acute embolism and thrombosis of left femoral vein - Discharge Information Referrals: Grzegorz Espinosa MD [Primary Care Provider] - Forms: ED Department Discharge Additional Instructions: The following information is given to patients seen in the emergency department who are being discharged to home. This information is to outline your options for follow-up care. We provide all patients seen in our emergency department with a follow-up referral. The need for follow-up, as well as the timing and circumstances, are variable depending upon the specifics of your emergency department visit. If you don't have a primary care physician on staff, we will provide you with a referral. We always advise you to contact your personal physician following an emergency department visit to inform them of the circumstance of the visit and for follow-up with them and/or the need for any referrals to a consulting specialist. The emergency department will also refer you to a specialist when appropriate. This referral assures that you have the opportunity for follow-up care with a specialist. All of these measure are taken in an effort to provide you with optimal care, which includes your follow-up. Under all circumstances we always encourage you to contact your private physician who remains a resource for coordinating your care. When calling for follow-up care, please make the office aware that this follow-up is from your recent emergency room visit. If for any reason you are refused follow-up, please contact the [facility] Emergency Department at and asked to speak to the emergency department charge nurse. [facility] [address] [place] [id number] [address] 1. Take medication as prescribed. You can alternate ibuprofen and Tylenol as directed for pain and discomfort. 2. Follow-up with your primary care provider as discussed. You been placed on the expedited follow-up list. Call Saturday morning to verify appointment time. 3. Return to the ED as needed and as discussed. - My Orders Last 24 Hours: My Active Orders 12/26/18 23:20 Venous Doppler Lwr Ext Lt [US] Stat 12/26/18 23:50 INR,PT,PROTHROMBIN TIME [COAG] Stat PTT,PARTIAL THROMBOPLSTIN TIME [COAG] Stat 12/26/18 23:52 CBC WITH AUTO DIFF [HEME] Stat - Assessment/Plan Last 24 Hours: My Active Orders 12/26/18 23:20 Venous Doppler Lwr Ext Lt [US] Stat 12/26/18 23:50 INR,PT,PROTHROMBIN TIME [COAG] Stat PTT,PARTIAL THROMBOPLSTIN TIME [COAG] Stat 12/26/18 23:52 CBC WITH AUTO DIFF [HEME] Stat
[2018-12-27] MEDS ORDERED: Enoxaparin 100 MG/1 ML Syringe SUBCUT ONE ×2 (00:01→00:16)
--- NOTE | 2018-12-27 00:12 | US ---
INDICATION: Left calf pain TECHNIQUE: Ultrasound venous duplex lower left extremity. Compression venous exam was performed using serrano-scale, color Doppler, and spectral Doppler analysis. COMPARISON: June 17, 2017 FINDINGS: Sonographic imaging demonstrates DVT within the left common femoral, superficial femoral, and popliteal veins. The left saphenous femoral junction, deep femoral, and posterior tibial veins are fully compressible with normal color Doppler blood flow. IMPRESSION: Study is positive for DVT within the left common femoral, superficial femoral, and popliteal veins. Findings discussed with Dr. Martinez at 12:12 a.m. on December 27, 2018. Dictated by Cynthia Smith MD @ Dec 27 2018 12:12AM Signed by Dr. Cynthia Smith @ Dec 27 2018 12:12AM
== END 2018-12-27 01:19 | disposition home or self-care (01) ==
LOC: MW.ED 22:55
DX: I82.412 Acute embolism and thrombosis of left femoral vein (principal); I82.432 Acute embolism and thrombosis of left popliteal vein; E78.00 Pure hypercholesterolemia, unspecified; I10 Essential (primary) hypertension; E03.9 Hypothyroidism, unspecified; M10.9 Gout, unspecified; Z79.899 Other long term (current) drug therapy; Z79.890 Hormone replacement therapy
CPT/HCPCS: 36415; 85025; 85610; 85730; 93971; 96372; 99284; J1650

== ENCOUNTER 2022-04-20 12:06 | Day surgery (SDC) | payer BC ==
[~2022-04-20 12:06] MED LIST: Lactated Ringers 1,000 ML IV SCH
[2022-04-20] MEDS ORDERED: Lidocaine 2% 5 ML SDV ONE (13:34)
[2022-04-20] MEDS ORDERED: fentaNYL 100 MCG/2 ML SDV ONE (13:35)
[2022-04-20] MEDS ORDERED: Propofol 200 MG/20 ML SDV ONE ×2 (13:35→14:09)
[2022-04-20] MEDS ORDERED: Lactated Ringers 1,000 ML IV SCH (14:30)
[2022-04-20 15:12] VITALS: BP 107/61; PULSE 77
== END 2022-04-20 15:07 | disposition home or self-care (01) ==
LOC: MW.SDS 12:06
PROVIDERS: ATTEND Surgery
DX: Z12.11 Encounter for screening for malignant neoplasm of colon (principal); D12.2 Benign neoplasm of ascending colon; I10 Essential (primary) hypertension; E78.00 Pure hypercholesterolemia, unspecified; E03.9 Hypothyroidism, unspecified; J30.9 Allergic rhinitis, unspecified; E11.9 Type 2 diabetes mellitus without complications; Z88.6 Allergy status to analgesic agent; Z79.899 Other long term (current) drug therapy; Z98.890 Other specified postprocedural states; Z79.890 Hormone replacement therapy
CPT/HCPCS: 45380; J2704; J3010; J7120; J3490